=== PATIENT | male | born 1970 | race Caucasian/White ===

== ENCOUNTER 2016-12-20 10:54 | Emergency (ER) | payer SELFPAY ==
[~2016-12-20] VITALS: Ht 162.6 cm; Wt 90.0 kg
[2016-12-20 10:59] VITALS: Ht 162.6 cm; Wt 90.0 kg
--- NOTE | 2016-12-20 12:06 | ERA ---
ER Documentation Chief Complaint Date/Time DATE: 12/20/16 TIME: 12:05 Chief Complaint anxiety attack after stressed at work,hyperventilating HPI The patient is a 46-year-old male, presenting to the ER from work because he feels very anxious, stressed out, complains of headache, jaw pain, neck pain that began about 10 AM. He attributed these symptoms from the stress of anxiety that he had at work. He normally takes [place] for the chronic headache but did not take it today. He denies blurred vision, diplopia, chest pain, dyspnea, abdominal pain, vomiting, dysuria, diarrhea, constipation. He does not smoke nor drink nor use any illicit. Past medical history: History of CVA, hypertension, CAD, chronic headache Past surgical history: CABG ROS All systems reviewed and are negative except as per history of present illness. Physical Exam Vitals Vital Signs Date Time Temp Pulse Resp B/P Pulse Ox O2 Delivery O2 Flow Rate FiO2 12/20/16 10:59 97.4 83 28 138/95 100 Physical Exam Const: No acute distress.Very anxious Head: Atraumatic. Eyes: Normal Conjunctiva. ENT: Normal External Ears, Nose and Mouth. Neck: Full range of motion. No meningismus. Resp: Clear to auscultation bilaterally. Cardio: Regular rate and rhythm. Abd: Soft, non distended, normal bowel sounds, non tender. Skin: No petechiae or rashes. Back: No midline or flank tenderness. Ext: No cyanosis, or edema. Neur: Awake and alert. No focal deficit Psych: Normal Mood and Affect. Result Diagram: 12/20/16 1230 12/20/16 1230 Results 24 hrs Laboratory Tests Test 12/20/16 12:30 White Blood Count 9.510^3/ul Red Blood Count 4.8310^6/ul Hemoglobin 13.9g/dl Hematocrit 41.4% Mean Corpuscular Volume 85.7fl Mean Corpuscular Hemoglobin 28.8pg Mean Corpuscular Hemoglobin Concent 33.6g/dl Red Cell Distribution Width 13.2% Platelet Count 76711^3/UL Mean Platelet Volume 9.0fl Neutrophils % 64.2% Lymphocytes % 27.5% Monocytes % 6.0% Eosinophils % 1.6% Basophils % 0.3% Nucleated Red Blood Cells % 0.0/100WBC Neutrophils # 6.110^3/ul Lymphocytes # 2.610^3/ul Monocytes # 0.610^3/ul Eosinophils # 0.210^3/ul Basophils # 0.010^3/ul Nucleated Red Blood Cells # 0.010^3/ul Prothrombin Time 24.6Sec Prothrombin Time Ratio 1.9 INR International Normalized Ratio 2.19 Activated Partial Thromboplast Time 59.2Sec Sodium Level 142mmol/L Potassium Level 4.5mmol/L Chloride Level 106mmol/L Carbon Dioxide Level 28mmol/L Anion Gap 13 Blood Urea Nitrogen 14mg/dl Creatinine 1.19mg/dl Glucose Level 99mg/dl Calcium Level 10.0mg/dl Troponin I Pending Ethyl Alcohol Level < 10.0mg/dl Procedures/MDM MEDICAL MAKING DECISION: The patient is a 46-year-old male, presenting with acute on chronic headache, acute anxiety, acute stress. He remains well in the emergency department and eloped from the emergency department in good stable condition according to the nurse. He did not want to wait for the head CT and did not want to wait for the labs results. The differential diagnoses considered include but are not limited to subarachnoid hemorrhage, occult trauma, CVA, meningitis, encephalitis, hypertension, tension, migraine, cluster, narcotic withdrawal, cervical spine disease. Departure Diagnosis: Primary Impression: Cephalalgia Additional Impressions: Anxiety Stress Condition: Stable (Eloped) EDGAR COX MD Dec 20, 2016 12:06
[2016-12-20 12:44] LABS: BASOPHILS % 0.3 % (0.0-2.0); EOSINOPHILS # 0.2 10^3/ul (0.0-0.5); EOSINOPHILS % 1.6 % (0.0-7.0); HEMATOCRIT 41.4 % (42.0-52.0); HEMOGLOBIN 13.9 g/dl (14.0-18.0); LYMPHOCYTES # 2.6 10^3/ul (0.8-2.9); LYMPHOCYTES % 27.5 % (15.0-51.0); MEAN CORPUSCULAR HEMOGLOBIN 28.8 pg (29.0-33.0); MEAN CORPUSCULAR HGB CONC 33.6 g/dl (32.0-37.0); MEAN CORPUSCULAR VOLUME 85.7 fl (82.0-101.0); MONOCYTE # 0.6 10^3/ul (0.3-0.9); NEUTROPHIL # 6.1 10^3/ul (1.6-7.5); NEUTROPHILS % 64.2 % (39.0-77.0); PLATELET COUNT 290 10^3/UL (140-415); RED BLOOD COUNT 4.83 10^6/ul (4.70-6.10); RED CELL DISTRIBUTION WIDTH 13.2 % (11.5-14.5); WHITE BLOOD COUNT 9.5 10^3/ul (4.8-10.8)
[2016-12-20 12:59] LABS: INR 2.19; PROTIME 24.6 Sec (12.2-14.2); PT RATIO 1.9
[2016-12-20 13:00] LABS: PARTIAL THROMBOPLASTIN TIME 59.2 Sec (25.0-35.0)
[2016-12-20 13:01] LABS: ANION GAP 13 (8-16); BLOOD UREA NITROGEN 14 mg/dl (7-20); CARBON DIOXIDE 28 mmol/L (21-31); CHLORIDE 106 mmol/L (97-110); CREATININE 1.19 mg/dl (0.61-1.24); ETHANOL < 10.0 mg/dl; GLUCOSE 99 mg/dl (70-220); POTASSIUM 4.5 mmol/L (3.5-5.1); SODIUM 142 mmol/L (135-144)
[2016-12-20 13:16] LABS: TROPONIN-I < 0.012 ng/ml (0.00-0.12)
[2016-12-20 14:16] LABS: URINE BLOOD (Dip) POC Trace-lysed (NEGATIVE)
== END 2016-12-20 12:51 | disposition left against medical advice (07) ==
LOC: E/R 10:54
DX: F41.9 Anxiety disorder, unspecified (principal); R51 Headache; F43.0 Acute stress reaction; I25.10 Atherosclerotic heart disease of native coronary artery without angina pectoris; I10 Essential (primary) hypertension; R07.9 Chest pain, unspecified; Z98.61 Coronary angioplasty status
CPT/HCPCS: 80048; 80306; 81003; 84484; 85025; 85610; 85730; 93005